=== PATIENT | male | born 1970 | race Two or more races ===

== ENCOUNTER 2024-04-11 13:23 | Emergency (ER) | payer OTHER ==
[~2024-04-11] VITALS: Ht 188 cm; Wt 89.0 kg
[2024-04-11 13:30] VITALS: TEMP 98.6; O2SAT 95
[2024-04-11] MEDS ORDERED: SODIUM CHLORIDE 0.9% 1,000 ML IV ONE (14:15)
[2024-04-11 14:34] VITALS: BP 105/60; PULSE 80; RESP 15
== END 2024-04-11 14:53 | disposition left against medical advice (07) ==
LOC: ER 13:23
DX: R55 Syncope and collapse (principal)
CPT/HCPCS: 99283; 93005; J7030